=== PATIENT | female | born 1940 | race Caucasian/White ===

== ENCOUNTER 2024-08-20 10:42 | Emergency (ER) | payer SELFPAY ==
[~2024-08-20] VITALS: Ht 154.9 cm; Wt 43.0 kg
[2024-08-20 10:49] VITALS: TEMP 98.2
--- NOTE | 2024-08-20 11:10 | Physician Documentation ---
History of Present Illness ~ Chief Complaint: See Chief Complaint Stated Complaint: TREMORS Time Seen by MD: 10:56 HPI 83-year-old female, who presents with tremors. She tells me that she has had tremors for a long time, states for at least many many years. She states that normally her tremors are pretty bad, especially in both of her arms. However over the past 3 days the tremors have gotten significantly worse, to the point where she is having difficulty eating and doing basic functions. She denies any diagnosis for these tremors, does not regularly see a doctor. She denies having a diagnosis of Parkinson's disease. She also reports that over the past 3 days she has also been just feeling generally unwell, like she has a viral syndrome or something going on. However, she denies any fevers, chills, congestion, productive cough, abdominal pain, vomiting, diarrhea, dysuria. She tells me that she is walking okay. She did not take any medications, has no medical diagnoses. Medication Reconciliation Allergies: Coded Allergies: No Known Allergies (Unverified , 08/20/24) Review of Systems Constitutional: Denies: fever Respiratory: Denies: cough Gastrointestinal: Denies: abdominal pain Neurological: Reports: other (Tremors) Physical Exam Vital Signs: Temperature: 98.2, Heart Rate: 95, Respiratory Rate: 16, BP: 151/108, Pulse Oximetry: 95, Weight: 43.000 Oxygen Flow Rate: 0 General Appearance General: This is a thin elderly woman, with a significant resting tremor in both of her arms, otherwise calm and cooperative HEENT: Atraumatic, oropharynx appears dry Heart: Tachycardic, appears regular Lungs: Clear breath sounds bilateral, normal work of breathing, normal oxygen saturation on room air Abdomen: Soft, nondistended, nontender all quadrants Neuro: Alert and oriented. The patient has a severe resting tremor in both of her upper extremities. Minimal tremor to the lower extremities. She is able to ambulate, does not appear significantly off balance. Otherwise no focal weakness or numbness. Speech is clear. Skin: The patient appears mildly diaphoretic Psychiatric: Calm and cooperative with exam Progress Results/Orders Results/Orders Orders - BRAIN MCNEIL MD Ct Head (08/20/24 13:56) Completed Orders - BRAIN MCNEIL MD Cbc/Diff (08/20/24 11:09) CMP (08/20/24 11:09) LA (08/20/24 11:09) MG (08/20/24 11:09) TSH (08/20/24 11:09) Ct Head (08/20/24 13:56) Ua W/Microscopic, Cult If Ind (08/20/24 12:37) Vital Signs 08/20/24 08/20/24 08/20/24 08/20/24 10:49 11:30 13:00 15:38 Temp 98.2 Pulse 95 86 85 77 Resp 16 16 16 16 B/P (MAP) 151/108 182/98 (126) 141/83 (102) 152/99 Pulse Ox 95 98 100 97 O2 Flow Rate 0 0 0 Laboratory Tests Test 08/20/24 11:26 08/20/24 12:37 White Blood Count 5.5 Red Blood Count 5.64 H Hemoglobin 11.3 L Hematocrit 36.0 Mean Corpuscular Volume 63.8 L Mean Corpuscular Hemoglobin 20.0 L Mean Corpuscular Hemoglobin Concent 31.3 L Red Cell Distribution Width 16.6 H Platelet Count 290 Mean Platelet Volume 8.7 Neutrophils (%) (Auto) 63.8 Lymphocytes (%) (Auto) 26.0 Monocytes (%) (Auto) 7.9 Eosinophils (%) (Auto) 0.8 Basophils (%) (Auto) 1.5 H Neutrophils # (Auto) 3.5 Lymphocytes # (Auto) 1.4 Monocytes # (Auto) 0.4 Eosinophils # (Auto) 0.0 Basophils # (Auto) 0.1 CBC Comment Platelet Estimate Normal Red Blood Cell Morphology Perf Basophilic Stippling Anisocytosis 1+ Microcytosis 2+ Target Cells Few Sodium Level 144 Potassium Level 4.0 Chloride Level 107 Carbon Dioxide Level 28.4 Anion Gap 9 Blood Urea Nitrogen 13 Creatinine 0.95 H Estimated GFR/1.73 m2 56 BUN/Creatinine Ratio 13.7 Glucose Level 94 Lactic Acid Level 1.4 Calcium Level 9.2 Magnesium Level 1.9 Total Bilirubin 1.4 H Aspartate Amino Transf (AST/SGOT) 18 Alanine Aminotransferase (ALT/SGPT) 20 Alkaline Phosphatase 52 Total Protein 7.2 Albumin 3.7 Globulin 3.5 Albumin/Globulin Ratio 1.1 Thyroid Stimulating Hormone (TSH) 3.43 Chemistry Comments Urine Specimen Description Non-specified Urine Color Yellow Urine Clarity Slightly cloudy Urine pH 6.5 Urine Specific [place] 1.020 Urine Protein Negative Urine Glucose (UA) Negative Urine Ketones Negative Urine Occult Blood Negative Urine Nitrite Negative Urine Bilirubin Negative Urine Urobilinogen 2.0 H Urine Leukocyte Esterase Negative Urine RBC 0-2 Urine WBC 0-4 Urine Squamous Epithelial Cells Moderate Urine Bacteria Few Urine Hyaline Casts 10-30 Urine Fine Granular Casts 0-3 Urine Coarse Granular Casts 0-3 Urine Culture Indicated Not ind Volume Urine Centrifuged 10 ml Urine Comment EKG/XRAY/CT/US/VASC/MRI CT : Impression I personally reviewed the CT scan, and this shows no acute mass, hemorrhage, or obvious stroke on the head CT Consults/PCP Consults/PCP : Additional Comment Consult: I spoke to Neurology regarding this patient. They recommend an MRI to further evaluate her symptoms, and admission for further evaluation and tr eatment. Medical Decision Making Additional Information Differential includes undiagnosed neurologic problems such as Parkinson's, electrolyte derangement, other neurologic disorder, stroke, drug reaction, brain mass Assessment The patient presents with acutely worsening chronic tremors. Per her history and exam, I suspect she has an undiagnosed underlying neurologic disorder such as Parkinson's. She denies any diagnoses or medications. Her lab work is unremarkable. No UTI. Thyroid function normal. Head CT unremarkable. Neurology was consulted and recommended an MRI and further treatment. I had multiple conversations with the patient regarding this, recommended admission and MRI. Unfortunately, she ultimately declined admission or any further testing or treatment. She stated she wanted to go home and think about it. She will be discharged, was encouraged to try to arrange a primary care doctor's appointment to follow up for further evaluation, and was given return precautions to return to the ER. Departure Time of Disposition: 15:28 Disposition: 01 HOME / SELF CARE / HOMELESS Impression: Primary Impression: Tremors of nervous system Condition: Stable Referrals: NO PRIMARY CARE PROVIDER (PCP) [facility] Education Educated: Patient Educated regarding: need for follow up Signature Scribe Signature: [email or web address] Attestation: BRAIN Grover MD Aug 20, 2024 11:10
[2024-08-20 11:40] LABS: BASOPHILS # (AUTO) 0.1 X10'3 (0-0.2); BASOPHILS % (AUTO) 1.5 % (0-1); EOSINOPHILS % (AUTO) 0.8 % (0-6); HEMOGLOBIN 11.3 g/dl (12.0-16.0); LYMPHOCYTES # (AUTO) 1.4 X10'3 (1.1-4.8); MEAN CORPUSCULAR HGB CONC 31.3 g/dL (33.0-36.5); MEAN CORPUSCULAR VOLUME 63.8 FL (78-98); MEAN PLATELET VOLUME 8.7 FL (7.4-10.4); MONOCYTES # (AUTO) 0.4 X10'3 (0-0.9); MONOCYTES % (AUTO) 7.9 % (2-12); NEUTROPHILS # (AUTO) 3.5 X10'3 (1.8-7.7); NEUTROPHILS % (AUTO) 63.8 % (42-75); PLATELET COUNT 290 X10'3 (140-440); RED BLOOD COUNT 5.64 X10'6 (4.20-5.60); RED CELL DISTRIBUTION WIDTH 16.6 % (11.5-14.5); WHITE BLOOD COUNT 5.5 X10'3 (4.5-11.0)
[2024-08-20 11:53] LABS: PLATELET ESTIMATE NORMAL
[2024-08-20 11:54] LABS: ANISOCYTOSIS 1+; MICROCYTOSIS 2+; TARGET CELLS FEW
[2024-08-20 11:56] LABS: ALANINE AMINOTRANSFERASE 20 U/L (12-78); ALBUMIN 3.7 G/DL (3.4-5.0); ALBUMIN/GLOBULIN RATIO 1.1 (1.1-1.5); ALKALINE PHOSPHATASE 52 IU/L (46-116); ANION GAP 9 (8-16); ASPARTATE AMINO TRANSFERASE 18 U/L (10-37); BILIRUBIN,TOTAL 1.4 MG/DL (0.1-1.0); BLOOD UREA NITROGEN 13 MG/DL (7-18); BUN/CREATININE RATIO 13.7 (10.0-20.0); CALCIUM 9.2 MG/DL (8.5-10.1); CHLORIDE 107 MMOL/L (99-107); CREATININE 0.95 MG/DL (0.40-0.90); GLUCOSE 94 MG/DL (70-104); SODIUM 144 MMOL/L (135-145); TOTAL CARBON DIOXIDE 28.4 MMOL/L (24-32); TOTAL PROTEIN 7.2 G/DL (6.4-8.2); eCRCL 32 ML/MIN; eGFR 56 ML/MIN
[2024-08-20 12:05] LABS: MAGNESIUM 1.9 MG/DL (1.5-2.4); THYROID STIMULATING HORMONE 3.43 ulU/ml (0.34-4.50)
[2024-08-20 13:07] LABS: BILIRUBIN,URINE NEGATIVE (Neg); COLOR,URINE YELLOW (Yellow); GLUCOSE, URINE NEGATIVE (Neg); KETONES,URINE NEGATIVE (Neg); LEUKOCYTE ESTERASE ,URINE NEGATIVE (Neg); NITRITES, URINE NEGATIVE (Neg); OCCULT BLOOD,URINE NEGATIVE (Neg); PH,URINE 6.5 (4.8-8.0); PROTEIN,URINE NEGATIVE (Neg)
[2024-08-20 13:18] LABS: UA COLLECTION TYPE NON-SPECIFIED
[2024-08-20 13:21] LABS: CLARITY,URINE SLIGHTLY CLOUDY (Clear)
[2024-08-20 13:24] LABS: BACTERIA,URINE FEW /HPF (Neg); RBC,URINE 0-2 /HPF (0-2); WBC,URINE 0-4 /HPF (0-4)
[2024-08-20 13:29] LABS: SQUAMOUS EPITHELIAL CELL,UR MODERATE /LPF (FEW)
[2024-08-20 13:30] LABS: COARSE GRANULAR CAST 0-3 /LPF (NEGATIVE); FINE GRANULAR CAST 0-3 /LPF (NEGATIVE)
--- NOTE | 2024-08-20 14:13 | RADIOLOGY REPORT ---
EXAM: CT CT HEAD HISTORY: actuely worsening chronic tremors, no hx brain imaging COMPARISON: None TECHNIQUE: Noncontrast axial CT images of the head were performed. Sagittal and coronal reformatted i mages were obtained. This CT exam was performed using 1 or more of the following dose reduction techn iques: Automated exposure control, adjustment of the mA and/or kv according to patient size, or the u se of iterative reconstruction techniques. Radiation Dose: CTDI volume is 47.3 mGy. Dose-length product is 142.32 mGy*cm FINDINGS: No intracranial hemorrhage, mass, midline shift, hydrocephalus, or evidence of acute large vessel inf arct. There is mild-moderate decreased attenuation in the periventricular white matter. The paranasa l sinuses are clear. The bilateral mastoid air cells and middle ear spaces are clear. No cranial frac ture or scalp edema. IMPRESSION: Chronic ischemic changes without evidence of acute intracranial process.
--- NOTE | 2024-08-20 14:26 | [facility] CONSULT REPORT ---
[facility] Procedure Note [facility] Procedure Note Consult [facility] Note # Demographics Consult Type: General Neurology Patient Location: Emergency Room First Name: MAGDALENA Last Name: TOMMY Date of : 1940 Age: 83 Gender: Female Facility: [facility] Time of Initial Page (): 08/20/2024 13:48 Time of Return Call ( Time): 08/20/2024 13:49 Phone Only Consult: 83 F with no PMHx who presented with tremors, which have been ongoing for years but worse over the past 3 days. Labwork/CT head negative as per ED team. There is concern for possible Parkinsons Disease. I would start with an MRI Brain to r/o vascular disease which may cause Vascular Parkinsons vs. basal ganglia changes from toxic exposures. Once MRI completed, Neurology can evaluate further for treatment recommendations. -MRI Brain with and without contrast -TSH, vitamin B12, vitamin B1, UA, u tox, CMP, ammonia -PT/OT Phone Agreement: - phone consult deemed mutually sufficient for patient care # Plan Other: - If patient has any neurological deterioration please call me back immediately # Logistics Attestation of consult completion: The patient is located at: [facility]. I performed this phone consultation from my offsite office Total time spent in telemedicine encounter: I spent 10 minutes in reviewing clinical data and/or imaging, obtaining history, communicating with the onsite care team, and in preparation of this report. # Demographics First Name: MAGDALENA Last Name: TOMMY Facility: [facility] Electronically signed at 08/20/2024 14:25 () by Jose A Ibarra MD Neuro Consult Order placed for: Yes JOSE A IBARRA MD Aug 20, 2024 14:26
[2024-08-20 15:38] VITALS: BP 152/99; PULSE 77; RESP 16; O2SAT 97
== END 2024-08-20 15:38 | disposition home or self-care (01) ==
LOC: ER 10:43
DX: R25.1 Tremor, unspecified (principal)
CPT/HCPCS: 36415; 70450; 80053; 81001; 83605; 83735; 84443; 85008; 85025; 99284